=== PATIENT | female | born 1965 | race Caucasian/White ===

== ENCOUNTER → 2016-10-04 | Outpatient (CLI) | payer OTHER ==
[~2016-10-04] VITALS: Ht 167.6 cm; Wt 68.9 kg
[~2016-10-04] MED LIST: CONTRAST GIVEN MC PRN; ESCITALOPRAM OX10 MG PO; IOHEXOL 180 MG/ML 10 ML VIAL. EPI ONE; OMEP20TA8 PO; VIVANZ PO
[2016-10-04 09:56] VITALS: BP 115/70
--- NOTE | 2016-10-04 12:18 | RAD ---
Lumbar myelogram, 10/04/2016: History: Back pain, spondylolisthesis Under local anesthesia, aseptic conditions and fluoroscopic guidance a lumbar puncture was performed at the L2-3 level utilizing a 25-gauge Grant spinal needle. Good clear CSF flow was obtained following which 14 cc of Omnipaque 180 was injected into the thecal sac. The spinal needle was then removed and appropriate lumbar imaging performed. 12 fluoroscopic spot images were recorded. 2.0 minutes of fluoroscopy time was utilized. The patient tolerated the procedure well and was sent to CT in good condition. Following findings were delineated on the myelogram: 1. There is a moderate anterior extradural defect at L4-5 and a mild anterior extradural defect at L5-S1, most prominent on the lateral standing extension views. There are minimal anterior extradural defects at L2-3 and L3-4. 2. There is a conjoined nerve root sleeve on the left containing the L5 and S1 nerve roots. The S1 nerve root sleeve is poorly opacified on the left compared to the right. 3. No significant spondylolisthesis or instability is seen on the lateral standing flexion and extension views. CT of the lumbar spine-post myelogram, 10/04/2016: Multidetector CT imaging was performed with multiplanar reconstructions produced. The following findings are delineated: 1. No fracture or destructive bony lesion is seen. There is no evidence of spondylolysis. There is moderate disc space narrowing, endplate sclerosis and mild marginal spurring at L5-S1. 2. At L1-2 there is minimal posterior annular bulging. The central spinal canal and neural foramina are well maintained. 3. No significant posterior disc bulge or protrusion is seen at L2-3 or L3-4. The central spinal canal and neural foramina are widely patent. 4. At L4-5 there is mild broad-based posterior disc bulging. The central spinal canal and neural foramina are well maintained. 5. At L5-S1 there is moderate disc space narrowing and endplate sclerosis. There is a vacuum disc phenomena. There is moderate sized abnormal soft tissue density contiguous with the posterior aspect of the disc on the left extending posteriorly. This effaces the left anterolateral epidural fat and the inferior aspect of the left S1 nerve root sleeve. This encroaches upon the inferomedial aspect of the left neural foramen. The appearance suggests a moderate-sized disc herniation. There is a partial laminectomy defect on the left raising the possibility that scarring could be contributing to this left-sided soft tissue density. The main thecal sac is not significantly narrowed. There is only mild bony foraminal encroachment bilaterally at this level. IMPRESSION: 1. Moderate degenerative disc disease at L5-S1 with a moderate-sized left disc herniation at that level. Postsurgical scarring could be contributing to this density. 2. Mild posterior disc bulging at L4-5. 3. No significant spondylolisthesis.
== END | disposition home or self-care (01) ==
LOC: RAD 09:29
PROVIDERS: ATTEND Neurological Surgery
DX: M51.26 Other intervertebral disc displacement, lumbar region (principal); M51.37 Other intervertebral disc degeneration, lumbosacral region; M43.16 Spondylolisthesis, lumbar region
CPT/HCPCS: 72132; 72265; 82962

== ENCOUNTER → 2016-11-01 | Outpatient (CLI) | payer BC, OTHER ==
[2016-10-04 09:56] VITALS: BP 115/70
[~2016-11-01] MED LIST changes: -CONTRAST GIVEN MC PRN; -IOHEXOL 180 MG/ML 10 ML VIAL. EPI ONE; +IOHEXOL 180 MG/ML 10 ML VIAL. ONE; +LEXAPRO20 MG PO; +methylPREDNISolone ACETATE 40 MG/ML VIAL. ONE; +methylPREDNISolone ACETATE 80 MG/ML VIAL. ONE
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
== END | disposition home or self-care (01) ==
LOC: PNCL 07:55
PROVIDERS: ATTEND Anesthesiology
DX: M51.16 Intervertebral disc disorders with radiculopathy, lumbar region (principal); M96.1 Postlaminectomy syndrome, not elsewhere classified; F17.200 Nicotine dependence, unspecified, uncomplicated; H91.93 Unspecified hearing loss, bilateral; E16.2 Hypoglycemia, unspecified; Z85.3 Personal history of malignant neoplasm of breast; Z86.73 Personal history of transient ischemic attack (TIA), and cerebral infarction without residual deficits; Z88.6 Allergy status to analgesic agent; Z88.1 Allergy status to other antibiotic agents; Z88.8 Allergy status to other drugs, medicaments and biological substances
CPT/HCPCS: 62323; J1030; J1040

== ENCOUNTER → 2016-11-17 | Outpatient (CLI) | payer BC ==
[2016-10-04 09:56] VITALS: BP 115/70
--- NOTE | 2016-11-18 02:06 | PAIN ---
DATE OF SERVICE: 11/17/2016 DIAGNOSES: Lumbar radiculopathy with lumbar degenerative disk disease and lumbar post-laminectomy syndrome. HISTORY OF PRESENT ILLNESS: The patient is a 51-year-old female who returns for followup status post caudal epidural steroid injection x 1. The patient reports about 50% improvement in the low back pain and bilateral lower extremities. The patient reports she has been increasing her activity with greater ease and comfort, has been getting by with much less pain and is quite pleased with her progress thus far. Reports still some pain in the low back radiating to bilateral lower extremities and much less radiation. The pain is originally 8 on a scale of 10 at its worst, 6 on average and about 3 at its least and 3 today. The patient reports aching, dull, sharp, tight, radiating but only off and on in intensity, though it is not constant as it was previously. The patient reports that it does not awaken her from sleep at night. She feels much better with lying down or sitting down, sleeping 8 hours without difficulty. The patient reports no new motor or sensory deficits, no new bowel or bladder incontinence or other complaints. PHYSICAL EXAMINATION: VITAL SIGNS: Today, the patient's blood pressure is 120/68, pulse is 84, respirations 18, temperature is 98.2 degrees Fahrenheit, height is 5 feet 6 inches, weight is 158 pounds. GENERAL: The patient is awake, alert, oriented, appropriate, very pleasant demeanor. HEENT: Head shows normocephalic and atraumatic. Extraocular movements are intact and symmetrical. Oral cavity: Mucous membranes are moist and pink. Dentition is intact. NECK: Shows anterior throat supple without palpable lymphadenopathy noted. Swallow reflex is symmetrical. CHEST: Normal with inspection. Breath sounds are clear to auscultation bilaterally. HEART: Shows S1 and S2 clear. ABDOMEN: Soft, nontender, nondistended. No palpable organomegaly, no rebound or guarding demonstrated. BACK: Shows spine grossly in midline. Well-healed surgical scars noted in the lumbar distribution. Mild flattening of lumbar lordotic curvature. Paraspinous musculature shows symmetrical on inspection and with palpation shows only very mild tenderness with palpation diffusely in the lower lumbar distribution bilaterally but is symmetrical without evidence of atrophy or hypertrophy, no trigger points or radiation. No tenderness over the sacrum or sacroiliac regions. The patient has good rotational motion of lumbar spine, both laterally as well as extension and flexion without difficulty. EXTREMITIES: Lower extremities show deep tendon reflexes 1+ in the patellar and tendo calcaneus tendons and are equal. Motor exam is strong with 5/5 dorsiflexion and extension as well as quadriceps and hamstring flexion and are equal. Peripheral pulses are 1+ in posterior tibial. No peripheral edema is noted. Options were discussed with the patient. The patient's old chart was reviewed as her current medication regimen updated. Current review of systems updated today as well. We will proceed with a second caudal epidural steroid injection today with fluoroscopic guidance. Risks were again discussed including but not limited to bleeding, infection, possibility of epidural hematoma, subsequent neurologic compromise, dural puncture, headaches, spinal cord and/or nerve damage, side effects of steroid medication and poor results regarding pain control. The patient understands and wishes to proceed. The patient will return to clinic in approximately 2 weeks for followup. She was counseled on return appointment, activity level and side effects to be aware of. DIAGNOSES: Lumbar radiculopathy with lumbar degenerative disk disease and post-lumbar laminectomy syndrome. PROCEDURE: Caudal approach epidural steroid injection using C-arm fluoroscopic guidance under sterile prep and drape using local anesthetic. MEDICATIONS INJECTED: Total of 120 mg Depo-Medrol plus 10 mL of preservative-free normal saline and 2 mL of Isovue for contrast. CONDITION AT DISCHARGE: Stable. The patient tolerated procedure well and had no complications. MICHAEL GREEN MD DR: AMANDA/rosa JOB#: [id number] / [id number]
== END | disposition home or self-care (01) ==
LOC: PNCL 08:10
PROVIDERS: ATTEND Anesthesiology
DX: M51.16 Intervertebral disc disorders with radiculopathy, lumbar region (principal); M96.1 Postlaminectomy syndrome, not elsewhere classified; Z86.73 Personal history of transient ischemic attack (TIA), and cerebral infarction without residual deficits; Z98.890 Other specified postprocedural states; Z88.6 Allergy status to analgesic agent; Z88.1 Allergy status to other antibiotic agents; Z88.8 Allergy status to other drugs, medicaments and biological substances
CPT/HCPCS: 62323; J1030; J1040